=== PATIENT | male | born 1975 | race Caucasian/White ===

== ENCOUNTER 2018-06-09 22:12 | Emergency (ER) | payer OTHER ==
[~2018-06-09] VITALS: Ht 177.8 cm; Wt 99.8 kg
[~2018-06-09 22:12] MED LIST: CYMBALTA60 MG PO; FLEXERIL PO; MEDROLDOSEPACK PO; NAPROSYN500 MG PO; NEURONTIN 400M400 M2 PO; NORCO 5-325 TA1 EACH PO; TRAZODONE HCL100 MG PO; TRILEPTAL600 MG PO; XANAX 0.5 MG0.5 M1 PO; ZOFRAN4 MG PO; ZOLOFT50 MG PO
[2018-06-09] MEDS ORDERED: GABAPENTIN 100100 MG PO (22:28)
[2018-06-09 22:59] LABS: ABSOLUTE BASOPHILS 0.1 thou/uL (0.0-0.2); ABSOLUTE EOSINOPHILS 0.4 thou/uL (0.0-0.7); ABSOLUTE LYMPHOCYTES 3.3 thou/uL (0.8-5.3); ABSOLUTE MONOCYTES 0.5 thou/uL (0.0-1.2); ABSOLUTE NEUTROPHILS 4.6 thou/uL (1.6-8.1); BASOPHILS 1.2 %; EOSINOPHILS 4.8 %; HEMATOCRIT 43.5 % (42.0-52.0); HEMOGLOBIN 15.5 gm/dL (14.0-18.0); LYMPHOCYTES 36.8 %; MCH 31.1 pg (26.0-34.0); MCHC 35.5 g/dL (28.0-37.0); MCV 87.5 fL (80.0-100.0); MONOCYTES 5.8 %; NUCLEATED RBCS 0 /100WBC; PLATELET COUNT* 215 thou/uL (150-400); POLYS 51.4 %; RBC 4.97 mil/uL (4.50-6.00); RDW-CV 13.3 % (10.5-14.5); WBC 8.9 thou/uL (4.0-11.0)
[2018-06-09 23:07] LABS: URINE BILIRUBIN NEGATIVE (Negative); URINE BLOOD NEGATIVE (Negative); URINE CLARITY CLEAR; URINE COLOR YELLOW; URINE GLUCOSE-RANDOM 3+ (Negative); URINE KETONES NEGATIVE (Negative); URINE LEUKOCYTES-REFLEX NEGATIVE (Negative); URINE NITRITE-REFLEX NEGATIVE (Negative); URINE PROTEIN NEGATIVE (Negative); URINE UROBILINOGEN 0.2 E.U./dl (0.2-1.0)
[2018-06-09 23:13] LABS: AMP/METHAMP Negative (Negative); BARBITURATES Negative (Negative); BENZODIAZEPINES Negative (Negative); COCAINE Negative (Negative); METHADONE Negative (Negative); OPIATES POSITIVE (Negative); PCP Negative (Negative); THC Negative (Negative)
[2018-06-09 23:13] LABS: ALBUMIN 3.3 g/dL (3.4-5.0); CREATININE 1.1 mg/dL (0.6-1.3); POTASSIUM 3.4 mmol/L (3.5-5.1); TOTAL BILIRUBIN 0.3 mg/dL (<0.1-1.0); TOTAL PROTEIN 6.3 g/dL (6.4-8.2)
[2018-06-10] MEDS ORDERED: NORCO 7.5-3251 EACH PO (00:34)
[2018-06-10 01:08] VITALS: BP 120/69
== END 2018-06-10 01:11 | disposition home or self-care (01) ==
LOC: M.ERS 22:12
PROVIDERS: Emergency Medicine
DX: S39.011A Strain of muscle, fascia and tendon of abdomen, initial encounter (principal); E78.00 Pure hypercholesterolemia, unspecified; F32.9 Major depressive disorder, single episode, unspecified; F17.210 Nicotine dependence, cigarettes, uncomplicated; Z79.899 Other long term (current) drug therapy; X58.XXXA Exposure to other specified factors, initial encounter; Y93.89 Activity, other specified; Y92.89 Other specified places as the place of occurrence of the external cause; Y99.8 Other external cause status

== ENCOUNTER 2019-09-22 21:09 | Emergency (ER) | payer OTHER ==
[~2019-09-22] VITALS: Ht 177.8 cm; Wt 98.9 kg
[~2019-09-22 21:09] MED LIST changes: +GABAPENTIN 100100 MG PO; +NORCO 7.5-3251 EACH PO
[2019-09-22] MEDS ORDERED: ABILIFY 5 MG TAB5 M1 PO (21:22)
[2019-09-22] MEDS ORDERED: ORAL DIABETES MED (21:23)
[2019-09-22] MEDS ORDERED: LISINOPRIL2.5 MG PO (21:23)
[2019-09-22] MEDS ORDERED: FENOFIBRATE40 MG PO (21:23)
[2019-09-22] MEDS ORDERED: CLEOCIN HCL300 MG PO (22:18)
[2019-09-22] MEDS ORDERED: PERCOCET 7.5-31 EAC1 PO (22:18)
[2019-09-22 22:36] VITALS: BP 153/97
== END 2019-09-22 22:50 | disposition home or self-care (01) ==
LOC: M.ERS 21:09
DX: L02.31 Cutaneous abscess of buttock (principal); F17.210 Nicotine dependence, cigarettes, uncomplicated; E11.9 Type 2 diabetes mellitus without complications; I10 Essential (primary) hypertension; Z79.899 Other long term (current) drug therapy